=== PATIENT | female | born 1930 | race Caucasian/White ===

== ENCOUNTER 2017-05-23 06:42 | Emergency (ER) | payer MEDICARE, BC ==
[~2017-05-23] VITALS: Ht 162.6 cm; Wt 79.4 kg
--- NOTE | ~2017-05-23 | CT71 ---
[facility] A Service of [facility] RADIOLOGY TEXT RESULTS PATIENT: WISAM SANYD LOCATION: HELEN : 32 UNIT #: [id number] AGE: [address]: Joshua Aguilera MD SEX: F ORDER DR: [id number] [place] [id number] [facility]. [place], [place] [address] [id number] E MR#: [id number] Acc #: [id number] NAME: WISAM SANDY : 1930 SEX: F STUDY DATE/TIME: 05/23/2017 11:19 UNIT: [facility] ROOM: STUDY DESCRIPTION: CT Head Wo Contrast Attending Physician: Joshua Aguilera M.D. Ordering Physician: Joshua Aguilera M.D. Primary Care Physician: No Primary Care Physician MEDICAL IMAGING REPORT This report is preliminary unless electronic signature is present EXAM CT of the head without contrast. INDICATIONS Headache for [address] scan of the head was performed without contrast. This CT exam was performed with one or more of the following radiation dose reduction techniques: automatic exposure control, adjustment of mA and/or kV according to patient size, and iterative reconstruction. COMPARISON 07/30/2015 FINDINGS There is no intracranial hemorrhage, acute cortical based infarction, focal mass lesion, or hydrocephalus. Stable cerebral and cerebellar volume loss. Carotid siphon calcifications. Stable bilateral mastoid air cell effusions. The included orbits and paranasal sinuses are unremarkable. Bone windows are unremarkable. IMPRESSION No acute intracranial abnormality. Dictated by... Lewis Weber M.D. THIS IS AN ELECTRONICALLY VERIFIED REPORT Lewis Weber M.D. at 05/24/2017 7:45 AM PETEY/joy [facility] A Service of [facility] RADIOLOGY TEXT RESULTS PATIENT: WISAM SANDY LOCATION: [facility] : 32 UNIT #: [id number] AGE: [address]: Joshua Aguilera MD SEX: F ORDER DR: TD: 05/23/2017 18:01 JOB #: [id number] MEDICAL IMAGING REPORT Page 1 of 1 COPY
--- NOTE | ~2017-05-23 | CT4 ---
[facility] A Service of [facility] RADIOLOGY TEXT RESULTS PATIENT: WISAM SANDY LOCATION: [facility] : 32 UNIT #: [id number] AGE: [address]: Joshua Aguilera MD SEX: F ORDER DR: [id number] [facility] [address] [facility]. [place], [place] [address] [id number] E MR#: [id number] Acc #: [id number] NAME: WISAM SANDY : 1930 SEX: F STUDY DATE/TIME: 05/23/2017 11:24 UNIT: HELEN ROOM: STUDY DESCRIPTION: CT Abd and Pelv Wo Cont Attending Physician: Joshua Aguilera M.D. Ordering Physician: Joshua Aguilera M.D. Primary Care Physician: No Primary Care Physician MEDICAL IMAGING REPORT This report is preliminary unless electronic signature is present EXAM CT of the abdomen and pelvis without contrast. INDICATIONS Urinary tract infection, renal cyst. TECHNIQUE CT of the abdomen and pelvis was performed without contrast. Coronal and sagittal reformatted images were obtained. This CT exam was performed with one or more of the following radiation dose reduction techniques: automatic exposure control, adjustment of mA and/or kV according to patient size, and iterative reconstruction. COMPARISON 11/09/2006 FINDINGS Calcified granuloma in the left lung base. The liver is unremarkable. There is a small amount of focal fatty infiltration of the liver adjacent to the falciform ligament. The gallbladder and spleen are unremarkable. The left kidney is unremarkable. There is a large cyst in the right kidney. The adrenal glands are unremarkable. The pancreas is unremarkable. PELVIS: Urinary bladder is unremarkable. Scant free fluid. The colon is unremarkable. The appendix is normal. Probable small calcified uterine fibroid. Bone windows demonstrate degenerative changes in the lower lumbar spine. IMPRESSION 1. No acute intraabdominal or pelvic abnormality. 2. Large cyst in the right kidney. 3. No evidence for kidney stone. [facility] A Service of [facility] RADIOLOGY TEXT RESULTS PATIENT: WISAM SANDY LOCATION: [facility] : 32 UNIT #: [id number] AGE: [address]: Joshua Aguilera MD SEX: F ORDER DR: Dictated by... Lewis Weber M.D. THIS IS AN ELECTRONICALLY VERIFIED REPORT Lewis Weber M.D. at 05/24/2017 7:46 AM Praneeth TD: 05/23/2017 18:13 JOB #: [id number] MEDICAL IMAGING REPORT Page 1 of 1 COPY
--- NOTE | ~2017-05-23 | EKG ---
PATIENT: WISAM SANDY UNIT #: [id number] Ventricular Rate: 50 BPM Atrial Rate: 50 BPM P-R Interval: 202 ms QRS Duration: 88 ms Q-T Interval: 436 ms QTC Calculation(Bezet): 397 ms P Spencer: 44 degrees Calculated R Spencer: 28 degrees Calculated T Spencer: 78 degrees Diagnosis Line: Sinus bradycardia Diagnosis Line: Otherwise normal ECG Diagnosis Line: When compared with ECG of 30-JUL-2015 05:37, Diagnosis Line: No significant change was found Diagnosis Line: Confirmed by CONSTANTINE TORRES MD ([id number]) on Diagnosis Line: 05/23/2017 7:36:41 PM INTERPRETING MD: BRIAN KIRKPATRICK
[~2017-05-23 06:42] MED LIST: ALPRAZOLAM PO; ALPRAZOLAM1 MG PO; AUGMENTIN875 MG PO; CAPOZIDE; CARDURA; CELEBREX; D-3 PO; FOLIC ACID PO; HCTZ PO; HYDROCHLOROTHIA25 MG PO; LISINOPRIL; LOPRESSOR PO; METOPROLOL SUCC50 MG PO; METOPROLOL TAR25 MG PO; OMEPRAZOLE20 M1 PO; ZESTRIL40 MG PO; [UNRECOGNIZED DRUG - OTHER] PO
[2017-05-23 07:57] LABS: BASOPHIL# 0.1 X10e3 (0-0.3); BASOPHIL% 0.8 % (0-2.5); EOSINOPHIL# 0.2 X10e3 (0-0.7); HEMATOCRIT 36.3 % (35.0-45.0); HEMOGLOBIN 11.4 gm/dL (12.0-16.0); LYMPHOCYTE# 1.9 X10e3 (1.0-3.5); LYMPHOCYTE% 18.4 % (17.0-45.0); MEAN CORPUSCULAR HEMOGLOBIN 26.7 PG (28-34); MEAN CORPUSCULAR HGB CONC 31.4 g/dL (30-36); MEAN PLATELET VOLUME 7.1 FL (6.5-11.5); MONOCYTE# 0.9 X10e3 (0-1.0); MONOCYTE% 8.9 % (3.0-12.0); NEUTROPHIL# 7.4 X10e3 (1.5-7.1); NEUTROPHIL% 69.9 % (40-75); PLATELET COUNT 449 X10e3 (140-420); RED BLOOD COUNT 4.27 X10e (3.90-5.30); RED CELL DISTRIBUTION WIDTH 15.6 % (11.0-15.5); WHITE BLOOD COUNT 10.6 X10e3 (4.0-10.5)
[2017-05-23 07:59] LABS: DIFF IND NO
[2017-05-23 08:12] LABS: URINE SOURCE CLEAN CATCH
[2017-05-23 08:16] LABS: URINE APPEARANCE CLEAR; URINE BILIRUBIN NEG (NEG); URINE BLOOD NEG (NEG); URINE COLOR YELLOW; URINE GLUCOSE NEG (NEG); URINE KETONE NEG (NEG); URINE LEUKOCYTE ESTERASE 1+ (NEG); URINE NITRATE NEG (NEG); URINE PROTEIN NEG (NEG); URINE SPECIFIC GRAVITY 1.012 (1.003-1.035); URINE UROBILINOGEN 0.2 MG/DL (NEG)
[2017-05-23 08:19] LABS: CULTURE INDICATED? YES; U HYALINE CASTS AUWI 0-2 /[LPF]; URBCS1 AUWI 0-2 /[HPF] (0-2); URINE BACTERIA AUWI NEG (NEGATIVE); URINE SQUAMOUS EPITHELIAL CELL OCC /[HPF]
[2017-05-23 08:34] LABS: ALBUMIN SERUM 3.4 g/dL (3.5-5.0); ALKALINE PHOSPHATASE 71 U/L (32-92); ALT (SGPT) 12 U/L (10-40); AST (SGOT) 16 U/L (10-42); BILIRUBIN,TOTAL 0.1 mg/dL (0.2-2.0); BLOOD UREA NITROGEN 11 mg/dL (9-23); BUN/CREATININE RATIO 8.46; CARBON DIOXIDE 22 mmol/L (22-31); CHLORIDE 94 mmol/L (100-111); CREATININE SERUM 1.3 mg/dL (0.6-1.4); GLOM FILT RATE Estimated 37.6 mL/min (>60); GLUCOSE FASTING 109 mg/dL (70-110); LIPASE 24 U/L (22-51); POTASSIUM 4.8 mmol/L (3.5-5.1); PROTEIN TOTAL SERUM 6.7 g/dL (6.0-8.3)
[2017-05-23 08:37] LABS: BILIRUBIN, DIRECT <0.1 mg/dL (0.0-0.2); SODIUM 125 mmol/L (135-145)
[2017-05-23 09:54] LABS: POC - TROPONIN <0.05 ng/mL (<=0.05)
== END 2017-05-23 14:09 | disposition home or self-care (01) ==
LOC: CED 06:42 → CFTX 08:50 → CED 08:50
PROVIDERS: Emergency Medicine
DX: R51 Headache (principal); R10.13 Epigastric pain; E87.1 Hypo-osmolality and hyponatremia; I10 Essential (primary) hypertension
CPT/HCPCS: 36415; 70450; 74176; 80048; 80076; 81003; 82553; 83690; 84484; 85025; 87086; 87088; 87186; 93005; 96360; 99284

== ENCOUNTER 2017-06-10 05:39 | Inpatient (IN) | payer MEDICARE, BC ==
[~2017-06-10] VITALS: Ht 165.1 cm; Wt 88.3 kg
--- NOTE | ~2017-06-10 | CT4 ---
[facility] A Service of [facility] RADIOLOGY TEXT RESULTS PATIENT: WISAM SANDY LOCATION: [facility] 549-01 : 32 UNIT #: [id number] AGE: [address]: Carolina Landa MD SEX: F ORDER DR: [id number] [facility] [address]. [place], [place] [address] [id number] I MR#: [id number] Acc #: [id number] NAME: WISAM SANDY : 1930 SEX: F STUDY DATE/TIME: 06/10/2017 8:11 UNIT: CED[facility] ROOM: 59519 STUDY DESCRIPTION: CT Abd and Pelv Wo Cont Attending Physician: Hyacinth Garvin M.D. Ordering Physician: Karthik Zaragoza Primary Care Physician: Katie Painter M.D. MEDICAL IMAGING REPORT This report is preliminary unless electronic signature is present EXAM CT abdomen and pelvis without contrast 06/10/2017 COMPARISON Prior study 05/23/2017. PROCEDURE Axial CT abdomen and pelvis without contrast with multiplanar reformats. This CT examination was performed with one or more of the following radiation dose reduction techniques: automatic exposure control, adjustment of mA and/or kV according to patient size, and iterative reconstruction. HISTORY One year history of upper abdominal pain. FINDINGS There is a small left effusion and probably some compressive atelectasis at the left base but the lung bases are otherwise normal. ABDOMEN: Unenhanced images of the liver, gallbladder, spleen and pancreas are unremarkable though motion degraded. There is a very large right renal cyst and there is cortical thinning in both kidneys but no calcification or hydronephrosis is seen on either side. The aorta is normal in caliber. There is no bowel obstruction, intraabdominal mass or inflammatory change. PELVIS: There is no pelvic mass, inflammatory change, hernia, bowel obstruction or other acute-appearing abnormality. IMPRESSION No acute abnormality. Chronic changes as above. There is a left pleural [facility] A Service of [facility] RADIOLOGY TEXT RESULTS PATIENT: WISAM SANDY LOCATION: [facility] 549-01 : 32 UNIT #: [id number] AGE: [address]: Carolina Landa MD SEX: F ORDER DR: neil. Dictated by... Baldemar Granados M.D. THIS IS AN ELECTRONICALLY VERIFIED REPORT Baldemar Granados M.D. at 06/14/2017 5:21 PM GABE/paulette TD: 06/10/2017 10:04 JOB #: [id number] MEDICAL IMAGING REPORT Page 1 of 1 COPY
--- NOTE | ~2017-06-10 | CR72 ---
[facility] A Service of [facility] RADIOLOGY TEXT RESULTS PATIENT: WISAM SANDY LOCATION: [place] [address] : 32 UNIT #: [id number] AGE: [address]: Carolina Landa MD SEX: F ORDER DR: [id number] [facility] [address]. [place], [place] [address] [id number] I MR#: [id number] Acc #: [id number] NAME: WISAM SANDY : 1930 SEX: F STUDY DATE/TIME: 06/11/2017 16:34 UNIT: [facility] ROOM: [facility] STUDY DESCRIPTION: CR Chest Single View Portable Attending Physician: Carolina Landa M.D. Ordering Physician: Carolina Landa M.D. Primary Care Physician: Katie Painter M.D. MEDICAL IMAGING REPORT This report is preliminary unless electronic signature is present EXAM Portable chest. HISTORY Patient with sepsis, cough, and PICC line placement. COMPARISON 06/11/2017 FINDINGS The examination demonstrates interval placement of a right neck approach central line distal tip mid SVC. Mild cardiomegaly with diffuse pulmonary vascular congestion may represent a component of CHF. Slight blunting of the CP angles could represent small effusions. Mediastinum and great vessels unremarkable. No pneumothorax. Dictated by... Matt Weber M.D. THIS IS AN ELECTRONICALLY VERIFIED REPORT Matt Weber M.D. at 06/11/2017 9:38 PM Rachel TD: 06/11/2017 19:25 JOB #: [id number] MEDICAL IMAGING REPORT Page 1 of 1 COPY
--- NOTE | ~2017-06-10 | OR ---
Unit #: [id number] #: [id number] Patient: WISAM SANDY [id number] [address] [place], [place] [address] [id number] I MR#: [id number] NAME: WISAM SANDY ROOM: 549 Date of Procedure: 06/12/2017 Admission Date: 06/10/2017 Surgeon: Moises Jenkins M.D. : 1930 Attending Physician: Carolina Landa M.D. Primary Care Physician: Katie Painter M.D. OPERATIVE REPORT PRIMARY CARE PHYSICIAN Katie Painter M.D. PREOPERATIVE DIAGNOSES Upper abdominal pain and dyspepsia. PROCEDURES PERFORMED Upper gastrointestinal endoscopy. POSTOPERATIVE DIAGNOSES Completely normal examination up to third part of duodenum. No mucosal abnormalities whatsoever present. RECOMMENDATIONS We can discontinue intravenous Protonix and the patient will be started on Protonix once a day. An outpatient colonoscopy warranted at later date. The patient can also be started on regular diet. SEDATION USED MAC. DESCRIPTION OF PROCEDURE Following detailed explanation of potential risks and complications of an upper endoscopy, namely perforation, bleeding, and complications related to sedation, the patient was brought to GI lab and the patient was laid in the left lateral decubitus position. Procedure was done in intensive care unit at the patient's bedside. Lubricated tip of the Olympus video upper endoscope was passed through bite block into the proximal esophagus under direct vision. The entire esophageal mucosa was examined and appeared normal. Z-line was nicely demarcated, there being no esophagitis or hiatus hernia. The scope was then advanced into the gastric cavity and the latter was insufflated. Mucosa of the fundus, body, and antrum examined and appeared unremarkable. Pylorus was intubated with visualization of the normal duodenal bulb and second and third part of the duodenum. Upon withdrawal and retroflexion, incisura, cardia, and greater curve examined and no additional findings noted. The scope was withdrawn in the distal esophagus. The entire esophageal mucosa was examined all the way up to pharynx, no additional findings noted. The patient tolerated the procedure without any postprocedure complications. Dictated by... Unit #: [id number] #: [id number] Patient: WISAM SANDY Pascual Dinh/sidra TD: 06/12/2017 22:53 JOB #: [id number] OPERATIVE REPORT Page 1 of 1 X Moises Jenkins MD PROCEDURE OPERATIVE NOTE
--- NOTE | ~2017-06-10 | EKG ---
PATIENT: WISAM SANDY UNIT #: [id number] Ventricular Rate: 109 BPM Atrial Rate: 109 BPM P-R Interval: 194 ms QRS Duration: 92 ms Q-T Interval: 328 ms QTC Calculation(Bezet): 441 ms P Wana: 55 degrees Calculated R Wana: 39 degrees Calculated T Wana: 107 degrees Diagnosis Line: Sinus tachycardia Diagnosis Line: ST and T wave abnormality, consider lateral ischemia Diagnosis Line: Abnormal ECG Diagnosis Line: When compared with ECG of 23-MAY-2017 09:35, Diagnosis Line: Vent. rate has increased BY 59 BPM Diagnosis Line: T wave inversion more evident in Lateral leads Diagnosis Line: Confirmed by HADLEY THOMASON MD ([id number]) on 06/11/2017 Diagnosis Line: 8:30:48 AM INTERPRETING MD: KATELIN KIRKPATRICK
--- NOTE | ~2017-06-10 | HP ---
Unit #: [id number] #: [id number] Patient: WISAM SANDY [id number] [place], [place] [address] [id number] I MR#: [id number] NAME: WISAM SANDY ROOM: 09897 Age: 86 Sex: F Admission Date: 06/10/2017 : 1930 Attending Physician: Hyacinth Garvin M.D. Primary Care Physician: Katie Painter M.D. HISTORY AND PHYSICAL CHIEF COMPLAINT Abdominal pain, short of air. HPI The patient is an 86-year-old female with past medical history of hypertension, cerebrovascular accident, anxiety, and osteoarthritis who presented to the emergency department for evaluation of the above. The patient states that she has had abdominal pain and shortness of breath for a couple of months. She has had recurrent urinary tract infections. She is currently on Macrobid twice daily for a urinary tract infection. The symptoms became acutely worse within the past 24 hours. She states that the abdominal pain is "everywhere." There are no exacerbating or alleviating factors. She has had a cough. She has burning with urination. She denies any vomiting. She has had loose stool, but states that she is typically constipated. She denies any vomiting. She has had pain "in the ribs." In the emergency department, initial oxygen saturation was 86% on room air, temperature 101.8, pulse 117, respirations 26, and blood pressure 156/91. Chest x-ray shows scarring or atelectasis in the left base. CT of the abdomen and pelvis shows no acute intraabdominal pathology. There is a left pleural effusion. White blood cell count 13.9. Initial lactic acid 1.6. She was given vancomycin and Zosyn in the emergency department as well as a gram of Tylenol. She is being admitted to [facility] for evaluation and further treatment. PAST MEDICAL HISTORY 1. Admission to [facility] July 30 through the 2014 for vertigo attributed to benign positional paroxysmal vertigo. 2. Hypertension. 3. Cerebrovascular accident with no residual deficits. 4. Anxiety. 5. Osteoarthritis. PAST SURGICAL HISTORY 1. EGD and colonoscopy by Dr. Crystal about five years ago. Normal per the patient (no records). 2. Bilateral tubal ligation. SOCIAL HISTORY The patient lives alone, but family lives close by and checks on her frequently. There is no tobacco or alcohol use. Her code status is a Unit #: [id number] #: [id number] Patient: WISAM SANDY full code. FAMILY HISTORY Notable for her mother having diabetes. ALLERGIES None. MEDICATIONS Home medications per the discharge summary from 2015 include: 1. Alprazolam 1 mg at bedtime. 2. Metoprolol 50 mg daily. 3. Zestril 40 mg daily. 4. Omeprazole 20 mg daily. Home medications will need to be reviewed and verified. REVIEW OF SYSTEMS A complete review of systems is negative, except as indicated in the HPI. DIAGNOSTIC TESTS CARDIOVASCULAR: EKG shows sinus tachycardia with a rate of 109 beats per minute. IMAGING: Chest x-ray shows left basilar atelectasis versus scarring. CT of the abdomen and pelvis shows left pleural effusion. LABORATORY: Arterial blood gas shows pH of 7.38, pCO2 of 41.3, and pO2 of 68.8 on 4 liters. Troponin was less than 0.05. Initial lactic acid is 1.6. Complete blood count notable for white blood cell count of 13.9; hemoglobin and hematocrit 10.4 and 32.2, respectively; and platelets are 492. Comprehensive metabolic panel notable for sodium of 128, chloride 96, glucose 138, and ALT is 9. Lipase 21. INR is 0.9. Urinalysis notable for trace leukocyte esterase. PHYSICAL EXAMINATION VITAL SIGNS: Temperature is 101.8, pulse 117, respirations 26, blood pressure 156/91, and oxygen saturation 86% on room air and most recently 94% on 4 liters. GENERAL: The patient is a female who is awake and alert in no acute distress. HEENT: The head is atraumatic. Mucous membranes are moist. NECK: Supple. Trachea is midline. CARDIOVASCULAR: Regular rate and rhythm. LUNGS: Demonstrate scattered rhonchi. Breathing is labored with conversation. ABDOMEN: Soft and nontender with bowel sounds present in all four quadrants. EXTREMITIES: Nontender with no pedal edema. She does have a few scattered contusions. NEUROLOGIC: The patient is awake and alert. She is hearing impaired. She is moving all extremities. PSYCH: Mood and affect are normal. The patient is cooperative. SKIN: Skin of examined areas is warm and dry. ASSESSMENT The patient is an 86-year-old female with: Unit #: [id number] #: [id number] Patient: WISAM SANDY 1. Acute respiratory failure, hypoxic. 2. Clinical pneumonia, community acquired. The patient received vancomycin and Zosyn in the emergency department. 3. Sepsis with an initial lactic acid of 1.6. 4. Left pleural effusion. 5. Hyponatremia. The patient's sodium has been as low as 125 on May 23, 2017. It is 128 today. Hyponatremia was attributed to hydrochlorothiazide in the past. Home medications need to be reviewed and verified. 6. Normocytic anemia. The patient's hemoglobin was 11.4 on May 23, 2017, and it is 10.4 today. 7. Hypertension. 8. Cerebrovascular accident with no residual deficits. 9. Anxiety. 10. Osteoarthritis followed by Dr. Spencer. PLAN 1. Admit to intermediate level. 2. Normal saline at 75 mL an hour. 3. Healthy heart diet if passes bedside swallow. 4. Fall precautions. 5. PT/OT to evaluate and treat. 6. Blood cultures x2. 7. Sputum culture and sensitivity. 8. Supplemental oxygen, 2-4 liters, to maintain saturations greater than 92%. 9. Check procalcitonin level. 10. DuoNebs q.4 hours. 11. Rocephin and azithromycin for community-acquired pneumonia pending further workup. 12. Mucinex 600 mg p.o. b.i.d. 13. Sepsis protocol with repeat lactic acid. 14. Serial cardiac enzymes. 15. Consult Dr Henriquez regarding pleural effusion. 16. Repeat labs in the morning. 17. SCDs for DVT prophylaxis. 18. Additional workup and consultants based on above. Dictated by Pascual Beasley/sarah TD: 06/10/2017 12:54 JOB #: [id number] Unit #: [id number] #: [id number] Patient: WISAM SANDY HISTORY AND PHYSICAL Page 1 of 1 X Hyacinth Garvin MD HISTORY AND PHYSICAL
--- NOTE | ~2017-06-10 | CR72 ---
[facility] A Service [facility] RADIOLOGY TEXT RESULTS PATIENT: WISAM SANDY LOCATION: [facility] 334 : 32 UNIT #: [id number] AGE: [address]: Hyacinth Garvin MD SEX: F ORDER DR: [id number] [address] [place], [place] [address] [id number] E MR#: [id number] Acc #: [id number] NAME: WISAM SANDY : 1930 SEX: F STUDY DATE/TIME: 06/10/2017 6:27 UNIT: HELEN ROOM: STUDY DESCRIPTION: CR Chest Single View Portable Attending Physician: Chu Angeles M.D. Ordering Physician: Chu Angeles M.D. Primary Care Physician: Katie Painter M.D. MEDICAL IMAGING REPORT This report is preliminary unless electronic signature is present EXAM Portable chest 06/10/2017 INDICATION Shortness of air beginning this morning. COMPARISON 05/05/2010. FINDINGS A portable view of the chest was obtained. The heart size and vascularity are normal. The lungs are clear except for some minimal atelectasis in the left base laterally. Bones are unremarkable. IMPRESSION There is minimal scarring or atelectasis in the left base near the costophrenic angle. Otherwise, there is no active disease. Dictated by... James Pearson M.D. THIS IS AN ELECTRONICALLY VERIFIED REPORT James Pearson M.D. at 06/10/2017 3:55 PM LORE/paulette TD: 06/10/2017 08:56 JOB #: [id number] MEDICAL IMAGING REPORT [facility] A Service [facility] RADIOLOGY TEXT RESULTS PATIENT: WISAM SANDY LOCATION: [facility] 334-01 : 32 UNIT #: [id number] AGE: [address]: Hyacinth Garvin MD SEX: F ORDER DR: Page 1 of 1 COPY
--- NOTE | ~2017-06-10 | CO ---
Unit #: [id number] #: [id number] Patient: WISAM POWELL [id number] [facility]. [place], [place] [address] [id number] I MR#: [id number] NAME: WISAM POWELL ROOM: 549 Age: 86 Sex: F Admission Date: 06/10/2017 : 1930 Attending Physician: Carolina Landa M.D. Primary Care Physician: Katie Painter M.D. Consultation Date: 06/10/2017 CONSULTATION REPORT ATTENDING PHYSICIAN Dr. Claros. PRIMARY CARE PHYSICIAN Dr. Katie Painter. REFERRING PHYSICIAN Dr. Cha. REASON FOR CONSULTATION 1. Abdominal pain. 2. Abnormal x-rays with fecal retention and gaseous distention. HISTORY OF PRESENT ILLNESS Ms. Powell is an 86-year-old white female. The patient has very limited mobility, mostly indoors. Most of the history was provided by the patient supplemented with her daughter, who was present at the bedside. The patient is admitted with increasing shortness of breath. She says she is unable to breath even while at rest. Even though her oxygenation is 100%, she is tachypneic. She does complain of diffuse abdominal pain. She complains of epigastric pain as well as pain in the right lower abdomen for past several months. According to the daughter, she has been having pain for more than a year. In addition, she has been lately been constipated for the past three days. Before that, she used to have diarrhea. She has been hurting for over a year. The patient was admitted. The patient apparently had an upper endoscopy and colonoscopy about 5 to 6 years ago. PAST MEDICAL HISTORY Significant for history of hypertension, cerebrovascular accident, and anxiety. According to the daughter, she has been depressed since her more than 14 to 15 years ago. There is also history of osteoarthrosis. PAST SURGICAL HISTORY Included bilateral tubal ligation. SOCIAL HISTORY The patient lives alone, but family is close by and checks on her frequently. Her daughters lives closest. She does not smoke or drink alcohol. FAMILY HISTORY Mother having had diabetes. Unit #: [id number] #: [id number] Patient: WISAM POWELL HOME MEDICATIONS Included alprazolam, metoprolol, Zestril, and omeprazole. ALLERGIES She has no known drug allergies. REVIEW OF SYSTEMS Detailed review of organ systems does not reveal any recent weight loss. No history of fever, chills or rigors, headache, seizures, chest pain, or syncope. No history of cough, expectoration, or hemoptysis. No history of dysuria, hematuria, or pyuria. No history of focal seizures or extremity weakness. Rest of review of organ systems is unremarkable. PHYSICAL EXAMINATION GENERAL: She is awake, alert, and oriented, and clearly appears anxious and depressed. VITAL SIGNS: Stable with a temperature of 98.4, pulse is 67 per minute and regular, respiratory rate is 18 to 21, and blood pressure is 111/55. She weighs 187 pounds and appears obese. HEENT: She has loqd-pt-lpxwfjln pallor. No icterus, lymphadenopathy, or peripheral edema. CARDIOVASCULAR: Normal heart sounds. No murmurs on auscultation. LUNGS: With normal breath sounds. Good air entry. ABDOMEN: Soft, obese, and nontender. Liver and spleen are not palpable. Bowel sounds are normal. DIAGNOSTIC STUDIES LABORATORY RESULTS: Shows a hemoglobin of 10.4, baseline hemoglobin has been about 12 to 11 in the past. Red cell indices are normochromic and normocytic. White count is 14,000 and platelet count is 492. The serum chemistry shows normal BUN and creatinine, but a serum sodium of 128. CT scan of the abdomen has been done couple of times in the past year or two, and has been normal and negative. BUN and creatinine are normal, and albumin is 3.5. LFTs are otherwise normal. BNP is 305. CLINICAL IMPRESSION The patient has chronic abdominal pain and increasing constipation. Whether her shortness of breath is due to anxiety or underlying pulmonary disease is unclear. She needs stabilization of respiratory status before any workup can be initiated. In the meantime, she is being started on daily MiraLAX and Senokot for constipation. The above plan was discussed with the patient and her daughter, and they were reassured. Thank you very much for asking me to see this pleasant woman. I appreciate the consult. Dictated by... Moises Jenkins M.D. AUBREE/sidra TD: 06/13/2017 03:13 JOB #: [id number] CC: Pascual Beasley M.D. Unit #: [id number] #: [id number] Patient: WISAM POWELL CONSULTATION REPORT Page 1 of 1 X Moises Jenkins MD CONSULTATION REPORT
--- NOTE | ~2017-06-10 | CR71 ---
[facility] A Service of [facility] & [facility] RADIOLOGY TEXT RESULTS PATIENT: WISAM SANDY LOCATION: [place] [address] : [birth year] UNIT #: [id number] AGE: [address]: Carolina Landa MD SEX: F ORDER DR: [id number] [facility] [address] [place], [place] [address] [id number] I MR#: [id number] #: [id number] NAME: WISAM SANDY : 1930 SEX: F STUDY DATE/TIME: 06/11/2017 9:15 UNIT: [facility] ROOM: [facility] STUDY DESCRIPTION: CR Chest Single View Attending Physician: Carolina Landa M.D. Ordering Physician: Bruna Cha M.D. Primary Care Physician: Katie Painter M.D. MEDICAL IMAGING REPORT This report is preliminary unless electronic signature is present EXAM Portable chest INDICATION Hypoxia, increasing shortness of air this morning. COMPARISON 06/10/2017. FINDINGS Today's portable view of the chest shows relatively low lung volumes with mild bibasilar atelectasis that is slightly worse than on yesterday's study. The bones are normal. Dictated by... James Pearson M.D. THIS IS AN ELECTRONICALLY VERIFIED REPORT James Pearson M.D. at 06/11/2017 12:46 PM LORE/paulette TD: 06/11/2017 10:56 JOB #: [id number] MEDICAL IMAGING REPORT Page 1 of 1 COPY
--- NOTE | ~2017-06-10 | DS ---
Unit #: [id number] #: [id number] Patient: WISAM SANDY [id number] [address] [address] [id number] I MR#: [id number] NAME: WISAM SANDY ROOM: 549 Age: 86 Sex: F Admission Date: 06/10/2017 : 1930 Discharge Date: Attending Physician: Carolina Landa M.D. Primary Care Physician: Katie Painter M.D. DISCHARGE SUMMARY DISCHARGE DIAGNOSES 1. Acute hypoxic respiratory failure requiring BiPAP. 2. Chronic obstructive pulmonary disease with exacerbation. 3. Sepsis. 4. Pneumonia. 5. Left-sided pleural effusion. 6. Acute on chronic hyponatremia. 7. Anemia, likely iron deficiency. EGD negative. 8. Sick sinus syndrome. 9. Hypertension. 10. History of cerebrovascular accident. 11. Abdominal pain, chronic, likely from constipation. 12. Atrial fibrillation with rapid ventricular rate. 13. Anxiety. 14. History of vertigo. 15. Osteoarthritis. 16. Hyponatremia. 17. Hypocalcemia. 18. Moderate protein malnutrition. CONSULTATIONS 1. Dr. Bangura. 2. Dr. Jenkins. 3. Dr. Henriquez. PROCEDURE Patient had EGD which is normal. DIAGNOSTIC STUDIES LABORATORY: Sodium 132, potassium 3.8, carbon dioxide 25, creatinine 1. WBC (1) , hemoglobin 8.2, platelets 394,000. Sputum culture is normal. Blood cultures normal. Urine cultures: Mixed growth. IMAGING: CT of the abdomen and pelvis shows no acute abnormality. ALLERGIES None. DISCHARGE MEDICATIONS 1. Albuterol nebulizer 3 mL four times daily p.r.n. 2. Zofran 4 mg p.o. q.6 p.r.n. nausea and vomiting. 3. Simethicone 125 mg p.o. b.i.d. 4. Xanax 1 mg at bedtime. 5. Lopressor 25 p.o. b.i.d. Unit #: [id number] #: [id number] Patient: WISAM SANDY 6. Senna two tablets at bedtime. 7. MiraLax 17 g at bedtime. 8. Humibid LA 600 mg p.o. b.i.d. for 10 days. 9. Hydralazine 25 p.o. b.i.d. 10. Carafate 1 g p.o. b.i.d. 11. Aspirin 81 daily. 12. Omeprazole 20 daily. 13. Amiodarone 200 p.o. b.i.d. for seven days followed by 200 mg p.o. daily. HOSPITALIZATION COURSE An 86 year old admitted because of shortness of breath. Acute hypoxic respiratory failure, likely from pneumonia and COPD: Patient received BiPAP and was in ICU. Currently, off BiPAP and off oxygen. Tolerating ambulation without oxygen. Patient seen by Dr. Henriquez. Patient will follow him as an outpatient. Sepsis from pneumonia: Patient was started on sepsis protocol. Broad-spectrum antibiotics given. Sputum culture is negative. Patient received latera p.o. Zithromax, completed course. Atrial fibrillation with rapid ventricular rate: Patient is seen by cardiology. Patient was started on amiodarone. Currently, rate controlled. Continue with p.o. amiodarone and Lopressor. Patient is not on any anticoagulation because of recent anemia. Anemia with abdominal pain: Patient is seen by GI. Patient had EGD which is negative. CAT scan of the abdomen negative. Patient needs outpatient colonoscopy by Dr. Jenkins. Patient will follow him. According to the daughter, abdominal pain is chronic. Acute on chronic hyponatremia: Mild, stable. COPD with exacerbation: Patient was given IV Solu-Medrol, DuoNeb, and antibiotics. Currently, breathing better. No wheezing. Continue with DuoNeb. Anemia: Likely iron deficiency. Status post EGD, which is negative. Patient needs outpatient colonoscopy. Her lowest hemoglobin is 7.5. DISCHARGE INSTRUCTIONS 1. Discharge home. 2. Follow with Dr. Bangura on August 16, 2017. 3. Follow with Dr. Henriquez in one to two weeks' time. 4. Follow with Dr. Moises Jenkins on July 27 for outpatient colonoscopy. 5. Patient will be discharged home with home health. Patient refusing rehab. 6. Follow with family physician in one week time. Discharge time taken is 40 minutes. Dictated by... Carolina Landa M.D. Unit #: [id number] #: [id number] Patient: SANDYWISAM/wilfredo TD: 06/15/2017 16:21 JOB #: [id number] DISCHARGE SUMMARY Page 1 of 1 X Carolina Landa MD DISCHARGE SUMMARY
--- NOTE | ~2017-06-10 | CO ---
Unit #: [id number] #: [id number] Patient: WISAM POWELL [id number] [address] [place], [place] [address] [id number] I MR#: [id number] NAME: WISAM POWELL ROOM: 549 Age: 86 Sex: F Admission Date: 06/10/2017 : 1930 Attending Physician: Carolina Landa M.D. Primary Care Physician: Katie Painter M.D. Consultation Date: 06/13/2017 CONSULTATION REPORT REASON FOR CONSULTATION New onset atrial fibrillation. HISTORY OF PRESENT ILLNESS This is an 86-year-old white female with history of hypertension, had stroke years ago with minimal residual, anxiety, reports vertigo and a normal stress test years ago, who came to the emergency room with abdominal discomfort, nausea, bloating and shortness of breath. She was admitted with acute hypoxic respiratory failure. They are treating her for a possible pneumonia and/or bronchitis. She has left pleural effusion. Also, she was found to be anemic. She says that is not anything new either. She has been told that her PCP she has some anemia. She had a CT of the abdomen and pelvis that did not show anything acute, just a left pleural effusion. Her latest chest x-ray showed mild cardiomegaly with pulmonary vascular congestion, questionable CHF. She did have a fever. She had a lactic acid of 1.6 so she was admitted with sepsis. She was started on IV antibiotics after cultures. On admission, her EKG showed sinus tachycardia with occasional PACs. She had some ST wave abnormalities in the lateral leads. Her cardiac enzymes were negative. She denies any acute chest pain but she says sometimes when she feels short of breath that she will have some chest pain substernal and sometimes she has a tightness under her bilateral breast area and that is usually with exertion. The patient denies any pain in her neck, bilateral jaw, shoulders, arms or elbows. She said she may have occasional palpitations even at home and she says that happens all the time. She denies any dizziness, presyncope or syncope. She has a dry cough and, as mentioned, she did have some fever and some chills. Yesterday afternoon her telemetry showed her heart was irregular. EKG was obtained. It was found she was in atrial fibrillation with a ventricular rate of 96 beats per minute. Cardiology has been consulted to manage. According to the patient, she has never been in that rhythm before. PAST MEDICAL HISTORY 1. Hypertension. 2. Previous stroke. Minimal residual reported. 3. History of anemia. 4. Osteoarthritis. 5. Anxiety. 6. History of vertigo. 7. Obesity. 8. Nonsmoker. 9. Normal stress test years ago. PAST SURGICAL HISTORY Unit #: [id number] #: [id number] Patient: WISAM POWELL 1. EGD and colonoscopy per Dr. Crystal about five years ago. According to patient, it was normal. 2. Bilateral tubal ligation. SOCIAL HISTORY The patient lives in a home alone but the family lives close by and checks on her frequently. Lifelong nonsmoker. No alcohol or illicit drug abuse. FAMILY HISTORY Her mother had diabetes mellitus, otherwise, they are in generally well health. ALLERGIES No known drug allergies. HOME MEDICATIONS 1. Lasix 20 mg p.o. daily. 2. Alprazolam 1 mg p.o. at bedtime. 3. Lisinopril 40 mg p.o. daily. 4. Aspirin 81 mg daily. 5. Metoprolol 50 mg every 12 hours. 6. Omeprazole 20 mg p.o. daily. 7. Carafate one gram daily. 8. Zofran 4 mg p.r.n. 9. Macrobid for questionable UTI 100 mg p.o. twice daily. REVIEW OF SYSTEMS See details in HPI. PHYSICAL EXAMINATION GENERAL APPEARANCE: Ms. Powell is an 86-year-old white female. She is hard of hearing, awake, alert and oriented. VITAL SIGNS: Currently, blood pressure is 117/63. Heart rate is 70. Respiration 18. Temperature 97.6. NECK: Trachea midline. No thyromegaly, lymphadenopathy. Normal carotid upstrokes. No jugular venous distension. HEART: S1, S2. Irregular rate and rhythm. Soft systolic murmur over aortic region left sternal border. LUNGS: Diminished. ABDOMEN: Obese, soft, tender with palpating especially the lower quadrant. EXTREMITIES: Pedal pulses are palpable, 1+ pedal edema. DIAGNOSTIC STUDIES LABORATORY: On admission, ABG: pH is 7.316, pCO2 38.8, pO2 124, O2 sats 97.8. Glucose 166, BUN 28, creatinine 1.1, EGFR 46.1, sodium 131, potassium 4.3, chloride 104, CO2 23, calcium 8.0. WBC 11.9. Hemoglobin is down to 7.6 and hematocrit 23.8. On admission, the patient's hemoglobin was 10.4 and hematocrit was 33.2. Platelets are 380. Initial cardiac enzymes: CK MB less than 1.0, troponin less than 0.05. CK total is 35, troponin less than 0.03. BNP 140. Lactic acid 1.5. Urinalysis: Trace of leukocyte esterase, trace of protein, 0.2 urobilinogen, 5 to 10 WBCs, 2 to 5 WBCs. Sputum cultures shows occasional gram-positive cocci. Blood cultures, preliminary report, no growth. These were done on 06/11. Urine culture, final, mixed growth of gram-positive and gram-negative consuelo. Blood cultures from 06/10, preliminary report, are negative. CARDIOVASCULAR: EKG shows sinus tachycardia with ventricular rate of 109 beats per minute, some ST wave abnormalities in lateral leads. EKG last Unit #: [id number] #: [id number] Patient: WISAM POWELL evening shows atrial fibrillation with ventricular rate 96 beats per minute, some nonspecific ST-T wave abnormalities, low voltage in inferior leads. IMPRESSION 1. Acute dyspnea, questionable pneumonia versus bronchitis. 2. Anemia, questionable GI bleed. 3. New onset atrial fibrillation, questionable sick sinus syndrome. 4. Hypertension. 5. Hyponatremia. 6. Previous stroke, minimal residual. 7. Anxiety. 8. Vertigo. 9. Normal stress test years ago. 10. Obesity. 11. Nonsmoker. PLAN 1. Cardiology consulted to assist with management of new onset of atrial fibrillation. It has just been a few hours since she has been in atrial fibrillation so we will try to convert. Due to patient's anemia, it will be hard to put her on anticoagulation at this point. We will start IV amiodarone at 150 mg bolus and then followed by amiodarone drip per protocol. We will decrease down the metoprolol from 50 mg to 25 mg twice daily due to having it looks like her blood pressures fluctuating. It has been low over the last 24 hours. We will stop the lisinopril and add hydralazine at a low dose for afterload reduction. 2. We will try to maintain normal sinus rhythm with amiodarone and beta blockers. 3. Dr. Jenkins is consulted for GI evaluation. She had an EGD on 06/12 that was essentially normal. The discussion about a colonoscopy is pending. 4. The patient will need some type of ischemic heart disease workup after her anemia and dyspnea improves. The patient has been typed and crossed for two units packed RBCs. 5. Obtain a TSH and T4 and evaluate. 6. Further recommendations pending per Dr. Bangura. Thank you very much for allowing us to assist in her care. Dictated by... Mariza Chatterjee A.P.R.N. for Pascual Peacock/marija TD: 06/13/2017 12:39 JOB #: [id number] Unit #: [id number] #: [id number] Patient: WISAM POWELL CONSULTATION REPORT Page 1 of 1 X Mariza Chatterjee APRN CONSULTATION REPORT
--- NOTE | ~2017-06-10 | EKG ---
PATIENT: WISAM SANDY UNIT #: [id number] Ventricular Rate: 96 BPM Atrial Rate: 133 BPM QRS Duration: 92 ms Q-T Interval: 326 ms QTC Calculation(Bezet): 411 ms Calculated R Napoleon: 28 degrees Calculated T Napoleon: 46 degrees Diagnosis Line: Atrial fibrillation Diagnosis Line: Nonspecific T wave abnormality Diagnosis Line: Abnormal ECG Diagnosis Line: No previous ECGs available Diagnosis Line: Confirmed by HADLEY THOMASON MD ([id number]) on 06/14/2017 Diagnosis Line: 11:30:45 PM INTERPRETING MD: KATELIN KIRKPATRICK
--- NOTE | ~2017-06-10 | EKG ---
PATIENT: WISAM SANDY UNIT #: [id number] Ventricular Rate: 59 BPM Atrial Rate: 59 BPM P-R Interval: 180 ms QRS Duration: 96 ms Q-T Interval: 412 ms QTC Calculation(Bezet): 407 ms P Brielle: 26 degrees Calculated R Brielle: 26 degrees Calculated T Brielle: 41 degrees Diagnosis Line: Sinus bradycardia Diagnosis Line: Otherwise normal ECG Diagnosis Line: When compared with ECG of 12-JUN-2017 18:31, Diagnosis Line: (unconfirmed) Diagnosis Line: Sinus rhythm has replaced Atrial fibrillation Diagnosis Line: Vent. rate has decreased BY 37 BPM Diagnosis Line: Confirmed by HADLEY THOMASON MD ([id number]) on 06/14/2017 Diagnosis Line: 11:46:05 PM INTERPRETING MD: KATELIN KIRKPATRICK
--- NOTE | ~2017-06-10 | CR72 ---
[facility] A Service of [facility] & [facility] RADIOLOGY TEXT RESULTS PATIENT: WISAM SANDY LOCATION: [facility] 549-01 : [birth year] UNIT #: [id number] AGE: [address]: Carolina Landa MD SEX: F ORDER DR: [id number] [facility] [address] [place], [place] [address] [id number] MR#: [id number] Acc #: [id number] NAME: WISAM SANDY : 1930 SEX: F STUDY DATE/TIME: 06/12/2017 6:17 UNIT: [facility] ROOM: [facility] STUDY DESCRIPTION: CR Chest Single View Portable Attending Physician: Carolina Landa M.D. Ordering Physician: Bruna Cha M.D. Primary Care Physician: Katie Painter M.D. MEDICAL IMAGING REPORT This report is preliminary unless electronic signature is present EXAM Portable chest INDICATION Pneumonia. Sepsis today. PROCEDURE Frontal view chest. COMPARISON 06/11/2017. FINDINGS Heart size unchanged. Small left pleural effusion is similar. No new dense consolidation or pneumothorax. IMPRESSION Stable. Dictated by... Keven Samayoa M.D. THIS IS AN ELECTRONICALLY VERIFIED REPORT Keven Samayoa M.D. at 06/13/2017 8:16 AM MARIELA/paulette TD: 06/12/2017 07:39 JOB #: [id number] MEDICAL IMAGING REPORT Page 1 of 1 COPY
[2017-06-10 06:36] LABS: ARTERIAL BLD GAS O2 SATURATION 91.8 % (90.0-100.0); ARTERIAL BLOOD GAS CARBOXY HB 0.8 %sat (0.0-9.0); ARTERIAL BLOOD GAS HCO3 24.4 mmol/L; ARTERIAL BLOOD GAS MET HB 0.9 %sat (0.0-2.0); ARTERIAL BLOOD GAS PCO2 41.3 mmHg (35.0-45.0)
[2017-06-10 06:37] LABS: ARTERIAL BLOOD GAS ALLEN TEST N; ARTERIAL BLOOD GAS ART SITE RIGHT RADIAL; ARTERIAL BLOOD GAS DELIVERY NASAL CANNULA; ARTERIAL BLOOD GAS PO2 68.8 mmHg (80.0-100); ARTERIAL DRAW? YES
[2017-06-10 06:45] LABS: POC - CKMB <1.0 ng/mL (0.0-7.9); POC - TROPONIN <0.05 ng/mL (<=0.05)
[2017-06-10 07:01] LABS: BASOPHIL% 0.3 % (0-2.5); HEMATOCRIT 33.2 % (35.0-45.0); HEMOGLOBIN 10.4 gm/dL (12.0-16.0); LYMPHOCYTE# 1.3 X10e3 (1.0-3.5); LYMPHOCYTE% 9.1 % (17.0-45.0); MEAN CELL VOLUME 85.4 FL (83-96); MEAN CORPUSCULAR HEMOGLOBIN 26.7 PG (28-34); MEAN CORPUSCULAR HGB CONC 31.3 g/dL (30-36); MEAN PLATELET VOLUME 7.2 FL (6.5-11.5); MONOCYTE# 0.9 X10e3 (0-1.0); MONOCYTE% 6.7 % (3.0-12.0); NEUTROPHIL# 11.6 X10e3 (1.5-7.1); NEUTROPHIL% 83.9 % (40-75); PLATELET COUNT 492 X10e3 (140-420); RED BLOOD COUNT 3.89 X10e (3.90-5.30); RED CELL DISTRIBUTION WIDTH 15.2 % (11.0-15.5); WHITE BLOOD COUNT 13.9 X10e3 (4.0-10.5)
[2017-06-10 07:02] LABS: DIFF IND NO
[2017-06-10 07:15] LABS: INR 0.9; PARTIAL THROMBOPLASTIN TIME 25.2 SECONDS (23.5-31.3)
[2017-06-10 07:20] LABS: ALBUMIN SERUM 3.5 g/dL (3.5-5.0); BILIRUBIN, DIRECT 0.1 mg/dL (0.0-0.2); BILIRUBIN,INDIRECT 0.3 mg/dL (0.0-0.9); BILIRUBIN,TOTAL 0.4 mg/dL (0.2-2.0); BUN/CREATININE RATIO 9.09; CALCIUM SERUM 8.6 mg/dL (8.4-10.2); CREATININE SERUM 1.1 mg/dL (0.6-1.4); GLOM FILT RATE Estimated 46.1 mL/min (>60); POTASSIUM 4.2 mmol/L (3.5-5.1)
[2017-06-10 07:22] LABS: PROTHROMBIN TIME (PATIENT) 10.1 SECONDS (10.0-11.7)
[2017-06-10] MEDS ORDERED: LASIX20 MG PO (09:07)
[2017-06-10] MEDS ORDERED: ZESTRIL40 MG PO (09:07)
[2017-06-10] MEDS ORDERED: ALPRAZOLAM1 MG PO (09:07)
[2017-06-10] MEDS ORDERED: BAYER CHEWABLE81 MG PO (09:08)
[2017-06-10] MEDS ORDERED: LOPRESSOR PO (09:10)
[2017-06-10] MEDS ORDERED: OMEPRAZOLE20 M2 PO (09:10)
[2017-06-10] MEDS ORDERED: CARAFATE1 GM PO (09:11)
[2017-06-10] MEDS ORDERED: ZOFRAN ODT4 M1 PO (09:18)
[2017-06-10 12:01] LABS: URINE SOURCE CLEAN CATCH
[2017-06-10 12:07] LABS: URINE APPEARANCE CLEAR; URINE BILIRUBIN NEG (NEG); URINE BLOOD NEG (NEG); URINE COLOR YELLOW; URINE GLUCOSE NEG (NEG); URINE KETONE TRACE (NEG); URINE LEUKOCYTE ESTERASE TRACE (NEG); URINE NITRATE NEG (NEG); URINE PH 5.5 (5-8); URINE PROTEIN NEG (NEG); URINE SPECIFIC GRAVITY 1.018 (1.003-1.035); URINE UROBILINOGEN 0.2 MG/DL (NEG)
[2017-06-10 12:09] LABS: URBCS1 AUWI 0-2 /[HPF] (0-2); URINE BACTERIA AUWI NEG (NEGATIVE); URINE SQUAMOUS EPITHELIAL CELL NONE SEEN /[HPF]; UWBCS1 AUWI 0-2 (0-5)
[2017-06-10 12:15] LABS: CULTURE INDICATED? NO
[2017-06-10] MEDS ORDERED: MACROBID100 M1 PO (15:36)
[2017-06-10 16:00] LABS: CK TOTAL 18 IU/L (26-140)
[2017-06-10 17:57] LABS: CK TOTAL 18 IU/L (26-140)
[2017-06-11 05:30] LABS: BASOPHIL% 0.2 % (0-2.5); HEMATOCRIT 31.5 % (35.0-45.0); HEMOGLOBIN 9.9 gm/dL (12.0-16.0); LYMPHOCYTE# 0.8 X10e3 (1.0-3.5); LYMPHOCYTE% 4.8 % (17.0-45.0); MEAN CELL VOLUME 85.1 FL (83-96); MEAN CORPUSCULAR HEMOGLOBIN 26.7 PG (28-34); MEAN CORPUSCULAR HGB CONC 31.4 g/dL (30-36); MEAN PLATELET VOLUME 6.8 FL (6.5-11.5); MONOCYTE# 1.2 X10e3 (0-1.0); MONOCYTE% 6.7 % (3.0-12.0); NEUTROPHIL# 15.7 X10e3 (1.5-7.1); NEUTROPHIL% 88.3 % (40-75); PLATELET COUNT 389 X10e3 (140-420); RED CELL DISTRIBUTION WIDTH 15.1 % (11.0-15.5); WHITE BLOOD COUNT 17.8 X10e3 (4.0-10.5)
[2017-06-11 05:43] LABS: DIFF IND YES
[2017-06-11 06:22] LABS: HYPOCHROMIA SL; PLATELET ESTIMATE NORMAL (NORMAL)
[2017-06-11 06:23] LABS: ELLIPTOCYTES PRESENT
[2017-06-11 06:24] LABS: ANISOCYTOSIS SL
[2017-06-11 06:27] LABS: ALBUMIN SERUM 2.8 g/dL (3.5-5.0); BILIRUBIN,TOTAL 0.5 mg/dL (0.2-2.0); GLOM FILT RATE Estimated 51.7 mL/min (>60); POTASSIUM 4.2 mmol/L (3.5-5.1)
[2017-06-11 06:50] LABS: CK TOTAL 38 IU/L (26-140)
[2017-06-11 08:02] LABS: ARTERIAL BLD GAS O2 SATURATION 88.4 % (90.0-100.0); ARTERIAL BLOOD GAS HCO3 22.8 mmol/L; ARTERIAL BLOOD GAS PCO2 44.7 mmHg (35.0-45.0); ARTERIAL BLOOD GAS pH 7.316 (7.350-7.450)
[2017-06-11 08:09] LABS: ARTERIAL BLOOD GAS ALLEN TEST NORMAL; ARTERIAL BLOOD GAS ART SITE LEFT BRACHIAL; ARTERIAL BLOOD GAS DELIVERY NASAL CANNULA; ARTERIAL BLOOD GAS PO2 61.1 mmHg (80.0-100); ARTERIAL DRAW? YES
[2017-06-11 10:13] LABS: CK TOTAL 48 IU/L (26-140)
[2017-06-11 14:07] LABS: ARTERIAL BLD GAS O2 SATURATION 97.8 % (90.0-100.0); ARTERIAL BLOOD GAS CARBOXY HB 0.5 %sat (0.0-9.0); ARTERIAL BLOOD GAS HCO3 19.8 mmol/L; ARTERIAL BLOOD GAS MET HB 0.6 %sat (0.0-2.0); ARTERIAL BLOOD GAS PCO2 38.8 mmHg (35.0-45.0); ARTERIAL BLOOD GAS pH 7.316 (7.350-7.450)
[2017-06-11 14:08] LABS: ARTERIAL BLOOD GAS ART SITE RIGHT BRACHIAL; ARTERIAL DRAW? YES
[2017-06-11 17:17] LABS: CK TOTAL 33 IU/L (26-140)
[2017-06-11 21:56] LABS: CK TOTAL 35 IU/L (26-140)
[2017-06-12 05:09] LABS: HEMATOCRIT 23.3 % (35.0-45.0); MEAN CELL VOLUME 84.8 FL (83-96); MEAN CORPUSCULAR HEMOGLOBIN 27.2 PG (28-34); MEAN PLATELET VOLUME 7.2 FL (6.5-11.5); RED BLOOD COUNT 2.75 X10e (3.90-5.30); RED CELL DISTRIBUTION WIDTH 15.8 % (11.0-15.5); WHITE BLOOD COUNT 11.3 X10e3 (4.0-10.5)
[2017-06-12 05:10] LABS: HEMOGLOBIN 7.5 gm/dL (12.0-16.0)
[2017-06-12 06:42] LABS: BUN/CREATININE RATIO 17.5; CALCIUM SERUM 7.6 mg/dL (8.4-10.2); CREATININE SERUM 1.2 mg/dL (0.6-1.4); GLOM FILT RATE Estimated 41.5 mL/min (>60); POTASSIUM 4.6 mmol/L (3.5-5.1)
[2017-06-12 08:30] LABS: HEMATOCRIT 23.9 % (35.0-45.0); HEMOGLOBIN 7.6 gm/dL (12.0-16.0)
[2017-06-12 08:42] LABS: URINE APPEARANCE CLEAR; URINE BILIRUBIN NEG (NEG); URINE BLOOD NEG (NEG); URINE COLOR YELLOW; URINE GLUCOSE NEG (NEG); URINE KETONE NEG (NEG); URINE LEUKOCYTE ESTERASE TRACE (NEG); URINE NITRATE NEG (NEG); URINE PH 5.5 (5-8); URINE PROTEIN TRACE (NEG); URINE SPECIFIC GRAVITY 1.017 (1.003-1.035); URINE UROBILINOGEN 0.2 MG/DL (NEG)
[2017-06-12 08:44] LABS: U HYALINE CASTS AUWI 0-2 /[LPF]; URINE BACTERIA AUWI NEG (NEGATIVE); URINE SQUAMOUS EPITHELIAL CELL NONE SEEN /[HPF]
[2017-06-12 08:47] LABS: CULTURE INDICATED? NO
[2017-06-13 04:13] LABS: HEMATOCRIT 23.8 % (35.0-45.0); HEMOGLOBIN 7.6 gm/dL (12.0-16.0); LYMPHOCYTE# 0.6 X10e3 (1.0-3.5); LYMPHOCYTE% 4.7 % (17.0-45.0); MEAN CELL VOLUME 83.7 FL (83-96); MEAN CORPUSCULAR HEMOGLOBIN 26.6 PG (28-34); MEAN CORPUSCULAR HGB CONC 31.7 g/dL (30-36); MEAN PLATELET VOLUME 6.9 FL (6.5-11.5); MONOCYTE# 0.3 X10e3 (0-1.0); MONOCYTE% 2.4 % (3.0-12.0); NEUTROPHIL# 11.1 X10e3 (1.5-7.1); NEUTROPHIL% 92.9 % (40-75); PLATELET COUNT 380 X10e3 (140-420); RED BLOOD COUNT 2.84 X10e (3.90-5.30); RED CELL DISTRIBUTION WIDTH 15.4 % (11.0-15.5); WHITE BLOOD COUNT 11.9 X10e3 (4.0-10.5)
[2017-06-13 04:15] LABS: DIFF IND NO
[2017-06-13 04:41] LABS: BUN/CREATININE RATIO 25.45; CREATININE SERUM 1.1 mg/dL (0.6-1.4); GLOM FILT RATE Estimated 46.1 mL/min (>60); POTASSIUM 4.3 mmol/L (3.5-5.1)
[2017-06-13 10:16] LABS: THYROID STIMULATING HORMONE 0.17 uIU/ml (0.34-5.60)
[2017-06-13 10:23] LABS: FREE THYROXIN (T4) 0.83 ng/dL (0.58-1.64)
[2017-06-14 05:44] LABS: HEMATOCRIT 24.3 % (35.0-45.0); HEMOGLOBIN 7.9 gm/dL (12.0-16.0); MEAN CELL VOLUME 84.3 FL (83-96); MEAN CORPUSCULAR HEMOGLOBIN 27.5 PG (28-34); MEAN CORPUSCULAR HGB CONC 32.6 g/dL (30-36); RED BLOOD COUNT 2.88 X10e (3.90-5.30); RED CELL DISTRIBUTION WIDTH 15.5 % (11.0-15.5); WHITE BLOOD COUNT 9.6 X10e3 (4.0-10.5)
[2017-06-14 06:08] LABS: ALBUMIN SERUM 2.3 g/dL (3.5-5.0); BILIRUBIN,TOTAL 0.2 mg/dL (0.2-2.0); BUN/CREATININE RATIO 25.45; CALCIUM SERUM 8.3 mg/dL (8.4-10.2); CREATININE SERUM 1.1 mg/dL (0.6-1.4); GLOM FILT RATE Estimated 46.1 mL/min (>60); POTASSIUM 4.6 mmol/L (3.5-5.1); PROTEIN TOTAL SERUM 4.9 g/dL (6.0-8.3)
[2017-06-15 05:58] LABS: HEMATOCRIT 24.9 % (35.0-45.0); HEMOGLOBIN 8.2 gm/dL (12.0-16.0); MEAN CELL VOLUME 83.7 FL (83-96); MEAN CORPUSCULAR HEMOGLOBIN 27.6 PG (28-34); MEAN PLATELET VOLUME 6.6 FL (6.5-11.5); RED BLOOD COUNT 2.97 X10e (3.90-5.30); RED CELL DISTRIBUTION WIDTH 15.1 % (11.0-15.5)
[2017-06-15 06:36] LABS: CALCIUM SERUM 8.2 mg/dL (8.4-10.2); GLOM FILT RATE Estimated 51.7 mL/min (>60); POTASSIUM 3.8 mmol/L (3.5-5.1)
[2017-06-15] MEDS ORDERED: ALBUTEROL MININEB NEB (16:27)
[2017-06-15] MEDS ORDERED: SIMETHICONE125 MG PO (16:30)
[2017-06-15] MEDS ORDERED: DOCUSATE SODIU1 EACH PO (16:32)
[2017-06-15] MEDS ORDERED: MIRALAX17 G2 PO (16:33)
[2017-06-15] MEDS ORDERED: HUMIBID-LA600 MG PO (16:35)
[2017-06-15] MEDS ORDERED: HYDRALAZINE HCL25 MG PO (16:35)
[2017-06-15] MEDS ORDERED: AMIODARONE HCL200 MG PO (16:39)
== END 2017-06-15 17:54 | disposition home or self-care (01) | DRG 871 ==
LOC: CED 05:39 → CEDOF 09:40 → CED 10:05 → CEDOF 10:05 → C3A PCU 14:22 → CEDOF 14:22 → C3A PCU 06-11 07:46 → CICCU2 06-11 10:30 → C5B 06-13 07:16 → CEDOF 06-13 11:32 → C5B 06-13 11:36
PROVIDERS: Emergency Medicine; Family Medicine; Internal Medicine; Internal Medicine Cardiovascular Disease; Internal Medicine Gastroenterology; Internal Medicine Pulmonary Disease
PROC: 05HM33Z Insertion of Infusion Device into Right Internal Jugular Vein, Percutaneous Approach (ICD-10-PCS; 2017-06-11)
PROC: 0DJ08ZZ Inspection of Upper Intestinal Tract, Via Natural or Artificial Opening Endoscopic (ICD-10-PCS; principal; 2017-06-12 07:36)
DX: A41.9 Sepsis, unspecified organism (principal); J18.9 Pneumonia, unspecified organism; J96.01 Acute respiratory failure with hypoxia; J91.8 Pleural effusion in other conditions classified elsewhere; E44.0 Moderate protein-calorie malnutrition; I11.0 Hypertensive heart disease with heart failure; J44.0 Chronic obstructive pulmonary disease with (acute) lower respiratory infection; I50.9 Heart failure, unspecified; J44.1 Chronic obstructive pulmonary disease with (acute) exacerbation; E87.1 Hypo-osmolality and hyponatremia; D50.9 Iron deficiency anemia, unspecified; I49.5 Sick sinus syndrome; K59.00 Constipation, unspecified; I48.91 Unspecified atrial fibrillation; F41.9 Anxiety disorder, unspecified; M19.90 Unspecified osteoarthritis, unspecified site; E83.51 Hypocalcemia; Z68.29 Body mass index [BMI] 29.0-29.9, adult; R42 Dizziness and giddiness; E66.9 Obesity, unspecified; Z98.51 Tubal ligation status; Z87.440 Personal history of urinary (tract) infections; Z83.3 Family history of diabetes mellitus
CPT/HCPCS: 36415; 36600; 71010; 74176; 80048; 80053; 80076; 81003; 82308; 82550; 82553; 82803; 83605; 83690; 83880; 84439; 84443; 84484; 85014; 85018; 85025; 85027; 85610; 85730; 86850; 86900; 86901; 86923; 87040; 87070; 87086; 87205; 93005; 94640; 94660; 94760; 96365; 97110; 97116; 97162; 97166; 97530; 99291; C9113; G8978-GP; G8979-GP; G8980-GP; G8987-GO; G8988-GO; G8989-GO; J0282; J0456; J0696; J1940; J2250; J2405; J2543; J2930; J3370